=== PATIENT | female | born 1995 | race Caucasian/White ===

== ENCOUNTER 2024-05-19 21:46 | Emergency (ER) | payer SELFPAY ==
[~2024-05-19] VITALS: Ht 160 cm; Wt 40.0 kg
[2024-05-19 21:49] VITALS: O2SAT 98
[2024-05-19] MEDS: SODIUM CHLORIDE 0.9% 1,000 ML IV ONE (23:04)
[2024-05-19 23:48] LABS: HEMATOCRIT. 29.9 % (36.0-48.0); HEMOGLOBIN. 10.2 g/dL (12.0-16.0); MEAN CORPUSCULAR HEMOGLOBIN 31.2 pg (28.0-32.0); MEAN CORPUSCULAR HGB CONC 33.9 g/dL (31.0-37.0); MEAN PLATELET VOLUME 9.9 fl (7.4-10.4); PLATELET 170 x1000/uL (130-400); RED BLOOD CELL COUNT 3.26 mill/uL (4.2-5.4); WHITE BLOOD COUNT 11.3 x1000/uL (4.5-11.0)
[2024-05-19 23:54] LABS: DIFFERENTIAL COMMENT 1
[2024-05-19 23:58] LABS: CHLORIDE 107 mEq/L (98-107); POTASSIUM 4.5 mEq/L (3.5-5.1); SODIUM 137 mEq/L (136-145)
[2024-05-19 23:59] LABS: CALCIUM 8.5 mg/dL (8.7-10.4); CARBON DIOXIDE 23 mEq/L (21-32)
[2024-05-20 00:04] LABS: CREATININE 0.5 mg/dL (0.6-1.0); GLUCOSE 82 mg/dL (70-105)
[2024-05-20 00:05] LABS: ETHANOL BLOOD < 10 mg/dL (<10)
[2024-05-20 00:06] LABS: ALANINE AMINOTRANSFERASE 29 IU/L (10-49); ALBUMIN 3.6 g/dL (3.2-4.8); ASPARTATE AMINOTRANSFERASE 34 IU/L (<34)
[2024-05-20 00:07] LABS: BILIRUBIN TOTAL 0.2 mg/dL (0.1-1.0); PROTEIN TOTAL 5.6 g/dL (6.0-8.3)
[2024-05-20 00:27] LABS: BILIRUBIN DIRECT < 0.1 mg/dL (<=3.0); UREA NITROGEN BLOOD < 5 mg/dL (9-23)
[2024-05-20 00:43] LABS: HCG SCREEN NEGATIVE
[2024-05-20 01:42] VITALS: BP 104/64; PULSE 88; RESP 14; TEMP 37.1; O2SAT 98
[2024-05-20 07:15] LABS: PLATELET ESTIMATE NORMAL
== END 2024-05-20 01:46 | disposition home or self-care (01) ==
LOC: ER 21:46
DX: R55 Syncope and collapse (principal); R42 Dizziness and giddiness
CPT/HCPCS: 80076; 80048; 80320; 84703; 83690; 85025; 36415; 93005; 96360; 99284; J7030; G0480